=== PATIENT | female | born 1990 | race African-American/Black ===

== ENCOUNTER 2023-01-30 07:36 | Emergency (ER) | payer MEDICAID ==
[~2023-01-30] VITALS: Ht 172.7 cm; Wt 91.0 kg
[2023-01-30 07:39] VITALS: BP 132/84; PULSE 71; RESP 18; TEMP 98.5; O2SAT 99
== END 2023-01-30 08:21 | disposition home or self-care (01) ==
LOC: ER 07:36
DX: Z00.00 Encounter for general adult medical examination without abnormal findings (principal); I10 Essential (primary) hypertension
CPT/HCPCS: 99281

== ENCOUNTER 2023-10-17 18:11 | Emergency (ER) | payer MEDICAID ==
[~2023-10-17] VITALS: Ht 170.2 cm; Wt 70.0 kg
[2023-10-17 19:45] LABS: BASOPHILS % 0.4 % (0.0-2.0); EOSINOPHILS % 4.6 % (0.0-5.0); HEMATOCRIT. 38.8 % (36.0-48.0); LYMPHOCYTES % 29.9 % (20.0-50.0); MEAN CORPUSCULAR HEMOGLOBIN 29.3 pg (28.0-32.0); MEAN CORPUSCULAR HGB CONC 33.5 g/dL (31.0-37.0); MEAN CORPUSCULAR VOLUME 87.4 fL (81.0-99.0); MEAN PLATELET VOLUME 7.6 fl (7.4-10.4); MONOCYTES % 11.4 % (2.0-8.0); NEUTROPHILS % 53.7 % (40.0-76.0); PLATELET 305 x1000/uL (130-400); RED BLOOD CELL COUNT 4.44 mill/uL (4.2-5.4); WHITE BLOOD COUNT 6.2 x1000/uL (4.5-11.0)
[2023-10-17 19:47] LABS: CHLORIDE 109 mEq/L (98-107); POTASSIUM 3.7 mEq/L (3.5-5.1); SODIUM 141 mEq/L (136-145)
[2023-10-17] MEDS: SODIUM CHLORIDE 0.9% 1,000 ML IV ONE (19:47)
[2023-10-17 19:48] LABS: CARBON DIOXIDE 26 mEq/L (21-32)
[2023-10-17 19:49] LABS: CALCIUM 9.3 mg/dL (8.7-10.4)
[2023-10-17 19:53] LABS: CREATININE 0.8 mg/dL (0.6-1.0); GLUCOSE 103 mg/dL (70-105); UREA NITROGEN BLOOD 10 mg/dL (9-23)
[2023-10-17 19:55] LABS: ACETAMINOPHEN < 2 ug/mL (10-30)
[2023-10-17 20:05] LABS: ETHANOL BLOOD < 10 mg/dL (<10); TROPONIN I HIGH SENSITIVITY < 4 ng/L (3.0-34)
[2023-10-17 21:36] LABS: TROPONIN I HIGH SENSITIVITY < 4 ng/L (3.0-34)
[2023-10-17 21:53] LABS: CLARITY URINE CLOUDY (CLEAR); COLOR URINE YELLOW (YELLOW); GLUCOSE URINE NEGATIVE (NEGATIVE); KETONES URINE TRACE (NEGATIVE); LEUKOCYTE ESTERASE URINE 1+ (NEGATIVE); NITRITE URINE NEGATIVE (NEGATIVE); OCCULT BLOOD URINE 3+ (NEGATIVE); PH URINE 5.5 (4.5-8.0); PROTEIN URINE TRACE (NEGATIVE); SPECIFIC GRAVITY URINE 1.033 (1.005-1.030); UROBILINOGEN URINE 0.2 E.U./dL (0.2-1.0)
[2023-10-17] MEDS ORDERED: *PATIENT'S OWN MEDICATION STORAGE XX SCH (22:00)
[2023-10-17 22:02] LABS: *AMPHETAMINES SCREEN URINE NEGATIVE (NEGATIVE); *BARBITURATES SCREEN URINE NEGATIVE (NEGATIVE); *BENZODIAZEPINES SCREEN URINE NEGATIVE (NEGATIVE); *COCAINE SCREEN URINE NEGATIVE (NEGATIVE); CANNABINOID URINE SCREEN PRESUMPTIVE POSITIVE (NEGATIVE); METHADONE URINE SCREEN NEGATIVE (NEGATIVE); OPIATES URINE SCREEN NEGATIVE (NEGATIVE); PHENCYCLIDINE URINE SCREEN NEGATIVE (NEGATIVE)
[2023-10-17 22:21] LABS: BACTERIA URINE 4+; RBC URINE 15-25 /hpf (0-2); SQUAMOUS EPITHELIAL CELL URINE 2+ /lpf (RARE/1+)
[2023-10-18 00:28] LABS: TROPONIN I HIGH SENSITIVITY < 4 ng/L (3.0-34)
[2023-10-18] MEDS: DIPHENHYDRAMINE 50MG/ML VIAL IM ONE (14:45)
[2023-10-18] MEDS: LORAZEPAM 2MG/ML INJ IM ONE (14:45)
[2023-10-18] MEDS: HALOPERIDOL LACTATE 5MG/ML VIAL IM ONE (14:45)
[2023-10-18 16:00] VITALS: O2SAT 97
[2023-10-18] MEDS: FLUOXETINE HCL 10 MG CAPSULE PO SCH (18:30)
[2023-10-18 23:52] VITALS: BP 123/77; PULSE 68; RESP 16; TEMP 97.8
== END 2023-10-19 01:43 | disposition still patient (30) ==
LOC: ER 18:11
DX: R45.851 Suicidal ideations (principal); F41.9 Anxiety disorder, unspecified; Z20.822 Contact with and (suspected) exposure to COVID-19
CPT/HCPCS: 80305; 80048; 81003; 80307; 80329; 80320; 82962; 85025; 84484; 36415; 93005; 96360; 99285; 87426; 96372; J7030; J1200; J1630; J2060; G0480